=== PATIENT | female | born 2005 | race Caucasian/White ===

== ENCOUNTER 2025-03-09 13:58 | Outpatient (CLI) | payer BC, SELFPAY ==
--- NOTE | 2025-03-09 13:45 | RT.EKG_ITS ---
APPROVED REPORT Exam: Resting ECG Reason for Exam: chest discomfort Patient Location: O HR:83 bpm ECG Measurements Heart Rate 83 AXIS GA 135 P 20 QRSd 98 QRS 54 QT 355 T 17 QTc 418 Conclusion Sinus rhythm...normal P axis, V-rate 50- 99 Normal Electrocardiogram
== END 2025-03-09 13:59 | disposition home or self-care (01) ==
LOC: DI.CM 13:59
PROVIDERS: PCP Nurse Practitioner Family; Visit Provider Nurse Practitioner Family
DX: R07.89 Other chest pain (principal)
CPT/HCPCS: 93010

== ENCOUNTER 2025-03-09 14:55 | Emergency (ER) | payer BC, SELFPAY ==
--- NOTE | 2025-03-09 15:00 | RT.EKG_ITS ---
APPROVED REPORT Exam: Resting ECG Reason for Exam: chest pain Patient Location: E HR:84 bpm ECG Measurements Heart Rate 84 AXIS VT 133 P 32 QRSd 92 QRS 25 QT 344 T 62 QTc 408 Conclusion Sinus rhythm, rate 84 No interval abnormalities No STEMI No significant changes from priors
[2025-03-09 15:04] VITALS: BP 115/81; PULSE 82; RESP 20; TEMP 36.4; O2SAT 96
[2025-03-09 15:09] VITALS: RESP 14
--- NOTE | 2025-03-09 16:14 | ED.GENADUL_ITS ---
Discharge Plan Disposition Patient Disposition: Home Condition: Stable Discharge Details Clinical Impression: Chest pain Primary Care Provider: Awais Adamson ED Provider: Giovanyn Devi Home Meds and New Rx's Prescriptions: Continued triamcinolone acetonide 0.1 % cream 1 applic topical QID Qty: 30 0RF Rx Instructions: apply to ring finger for dyshidrotic eczema for no longer than 2 weeks at a time albuterol sulfate 90 mcg/actuation HFA aerosol inhaler 2 puff inhalation Q6H PRN (Reason: shortness of breath or wheezing) Qty: 8.5 0RF (DME) Aerochamber MV Spacer See Rx Instructions .Route Qty: 1 0RF Rx Instructions: As directed multivitamin Tablet 1 tab PO DAILY medroxyprogesterone [Depo-Provera] 150 mg/mL suspension 150 mg IM [id number] Qty: 1 4RF escitalopram oxalate 20 mg tablet 20 mg PO DAILY Qty: 90 4RF Rx Instructions: dose increase Discharge Instructions Additional Instructions: Your blood work and x-ray did not show any concerning findings at this time. Follow-up with your primary care provider within 1 to 2 weeks especially if your symptoms are continuing. If you feel significantly more ill or have new symptoms such as persistent vomiting return to the emergency department for reevaluation. Stand Alone Forms: Work Release HPI General Mode of arrival: ambulatory . Date/Time Provider Initiated Documentation: 03/09/25 15:09 . Limitations to Documentation: no limitations . Information obtained by: patient . History of Present Illness 19 year old F presents to the emergency department with the chief complaint of chest pain, dyspnea, described as mild, Patient started experiencing this month(s) (1) and it has been constant. No relieving factors improve symptom(s), No exacerbating factors reported . Patient notes no other symptoms.. Patient did receive the following treatments prior to arrival, none Related Data Home Medications ?Medication ?Instructions ?Recorded ?Confirmed albuterol sulfate 90 mcg/actuation 2 puff inhalation Q 6H PRN 05/13/24 03/09/25 aerosol inhaler shortness of breath or wheez ing #8.5 grams inhalational spacing device #1 ea 05/13/24 03/09/25 (Aerochamber MV spacer) triamcinolone acetonide 0.1 % 1 applic topical QID #30 grams 08/28/24 03/09/25 topical cream multivitamin 1 tab PO DAILY 09/24/2402/23 medroxyprogesterone 150 mg/mL 150 mg IM [id number] #1 mL 10/09/24 03/09/25 intramuscular suspension (Depo-Provera) escitalopram oxalate 20 mg tablet 20 mg PO DAILY #90 t abs 10/29/24 03/09/25 Previous Rx's ?Medication ?Instructions ?Recorded albuterol sulfate 90 mcg/actuation 2 puff inhalation Q 6H PRN 05/13/24 aerosol inhaler shortness of breath or wheez ing #8.5 grams inhalational spacing device #1 ea 05/13/24 (Aerochamber MV spacer) triamcinolone acetonide 0.1 % 1 applic topical QID #30 grams 08/28/24 topical cream medroxyprogesterone 150 mg/mL 150 mg IM [id number] #1 mL 10/09/24 intramuscular suspension (Depo-Provera) escitalopram oxalate 20 mg tablet 20 mg PO DAILY #90 t abs 10/29/24 Allergies Allergy/AdvReac Type Severity Reaction Status Date / Time No Known Allergies Allergy Verified 03/09/25 15:12 General Stated Complaint: Chest Pain SHAYY: 3 Review of Systems All systems reviewed & are unremarkable except as noted in HPI and below Constitutional Constitutional: Denies chills, Denies fever(s) and Denies weakness Cardiovascular Cardiovascular: Reports chest pain and Reports dyspnea Respiratory Respiratory: Denies cough and Reports dyspnea Gastrointestinal Gastrointestinal: Denies abdominal pain, Denies nausea and Denies vomiting Neurologic Neurologic: Denies weakness Exam Const General: no acute distress Orientation: alert [facility] Head: normal to inspection Ears: external ears normal General nose exam: external nose normal Mouth: moist mucous membranes Eyes General: appearance normal, both eyes and all related structures Neck Neck: normal visual inspection Resp Effort & Inspection: normal respiratory effort and able to speak in complete sentences Auscultation: clear to auscultation bilaterally Cardio Jugular venous pressure: no JVD Rate: regular rate Heart Sounds: no murmurs Skin General skin exam: no rashes or lesions noted Neuro General: patient alert and patient oriented x3 Extrem General: normal to inspection Psych Mental Status: mental status grossly normal Course Vital Signs Vital signs: Vital Signs Temperature 36.4 C 03/09/25 15:04 Pulse 82 03/09/25 15:04 Respiratory Rate 20 03/09/25 15:04 Blood Pressure 115/81 03/09/25 15:04 Pulse Oximetry 96 03/09/25 15:04 Temperature 36.4 C 03/09/25 15:04 Temperature Source Oral 03/09/25 15:04 Pulse 82 03/09/25 15:04 Respiratory Rate 14 03/09/25 15:09 Respiratory Effort Normal 03/09/25 15:09 Respiratory Depth Normal 03/09/25 15:09 Respiratory Pattern Normal 03/09/25 15:09 Blood Pressure 115/81 03/09/25 15:04 Blood Pressure Position Sitting 03/09/25 15:04 Pulse Oximetry 96 03/09/25 15:04 Oxygen Delivery Method Room Air 03/09/25 15:04 Oxygen Flow Rate 0 03/09/25 15:04 Pain Level 3 03/09/25 15:09 Medical Decision Making 19-year-old female with a history of anxiety and asthma who comes in with 1 month of intermittent chest pressure and dyspnea. Denies any vomiting, fevers, chills, abdominal pain. She is speaking full sentences in no distress. She has clear lung sounds, no JVD, no murmur, no leg swelling or calf tenderness. Given her age I suspect this could be anxiety related but will check a CBC and CMP and troponins. Will also obtain a chest x-ray though my suspicion for entities such as pneumothorax or pneumonia is low. She has on medroxyprogesterone so we will obtain a D-dimer to screen for PE. She has no tearing back pain and has equal peripheral pulses so I doubt dissection Labs unremarkable, D-dimer negative and troponin negative, given she has had symptoms for a month I do not feel delta troponin is indicated. X-ray unremarkable. She is stable and still appears well. She is stable for discharge and will follow-up with her PCP, return precautions given Differential Diagnosis Differential Diagnosis: Anxiety, stress, PE Lab Data Lab results reviewed: Yes I reviewed the patient's lab results. ECG Data Attestation: I personally reviewed and interpreted this ECG (s) as follows: Prior ECG tracings: not available for review Interpretation: sinus rate of 84 no stemi Quality:SDOH Health Related Social Needs: Health related social needs lonely/isolated PFSH All Active Problems (Updated 03/09/25 @ 17:47 by Giovanny Devi MD) Chest pain (Acute) Skin-picking disorder (Acute) Seasonal allergies (Acute) Anxiety (Chronic) Oppositional defiant disorder (Acute) Insomnia (Acute) Keratosis pilaris (Acute) Thoracic back pain (Acute) Mood disorder (Acute) Asthma (Chronic) Surgical History S/P appendectomy (~03/08/17) Family History Mother Depression Father Adopted Maternal Grandmother Colon cancer Diabetes Maternal Grandfather Heart disease Hyperlipidemia Hypertension Social History Smoking/Tobacco Use Status: Never Smoking risk assessment performed?: Yes Alcohol Intake: never Drug use: Never Substance use type: does not use Adopted: Yes Caregiver/Support person: Yes Household members: caregiver Housing: other Details: house trailer Number of Children: 0 number of grandchildren: 0 Communication Needs: None Education Level: high school Do you need help understanding health information?: Rarely 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 Sexually active: No Do you think of yourself as: don't know Current gender identity: other Other: Agender What is your relationship status?: never How often do you talk on the phone with friends or family?: never How often do you get together with friends or relatives?: never How often do you attend bahai or adventism services?: decline to answer Do you belong to any clubs or organized social groups?: no Panel score (0-1 are the most socially isolated patients): 0 NHANES result reviewed/action taken: Yes What type of physical activity do you participate in: walking Duration: > 90 minutes/day Frequency: 5-6 times per week Jodi/Orthodox: Non hindu Special jodi needs: No Seatbelt use: always Helmet use: Yes Helmet use: sometimes Drive intox or ride w/intox otr 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
--- NOTE | 2025-03-09 16:30 | DI.RAD_ITS ---
Exam(s) XR CHEST 2V PA LATERAL EXAM: XR CHEST 2V PA LATERAL CLINICAL HISTORY: chest pain. TECHNIQUE: 2D digital imaging was performed. COMPARISON: No exams were available for comparison FINDINGS: 2 views: Heart size is normal. The mediastinum is not widened. Lungs are clear. No infiltrates nor pleural effusions. IMPRESSION: No acute pulmonary findings. DATA REPOSITORY: RADIATION DOSE DELIVERED:
[2025-03-09 17:07] LABS: Abs Immature Grans 0.04 10^3/uL (0.0-0.06); HCT 39.4 % (36.0-46.0); HGB 12.9 g/dL (11.2-15.7); Immature Grans % 0.4 %; MCH 28.4 pg (27.0-33.0); MCHC 32.7 % (32.0-36.0); MCV 87 fL (80-95); MPV 11.7 fL (8.0-11.0); Platelet Count 295 10^3/uL (130-400); RBC 4.54 10^6/uL (3.93-5.22); RDW 14.0 % (11.7-14.6); RDW-SD 44.7 fL; WBC 10.77 10^3/uL (4.4-10.8)
[2025-03-09 17:22] LABS: HCG Qual (Serum) Negative
[2025-03-09 17:27] LABS: ALT 38 U/L (14-59); AST 22 U/L (15-37); Albumin 4.4 g/dL (3.4-5.0); Alkaline Phosphatase 77 U/L (46-116); Anion Gap 9.5 mmol/L (3-11); BUN 15 mg/dL (7-18); Bilirubin, Total 0.3 mg/dL (0.2-1.0); CO2 26.5 mmol/L (21.0-32.0); Calcium 9.7 mg/dL (8.5-10.1); Chloride 104 mmol/L (98-107); Estimated GFR 127.69 (mL/min/1.73m2); Glucose 86 mg/dL (74-106); Magnesium 2.2 mg/dL (1.8-2.4); Potassium 3.8 mmol/L (3.5-5.1); Sodium 140 mmol/L (136-145); Total Protein 8.6 g/dL (6.4-8.2); Troponin I < 4 ng/L (<or=51)
[2025-03-09 17:33] LABS: D-Dimer 192 ng/mlFEU (<500)
[2025-03-09 18:10] VITALS: BP 122/66; PULSE 85; RESP 16; TEMP 36.9; O2SAT 99
== END 2025-03-09 18:14 | disposition home or self-care (01) ==
PROVIDERS: Emergency Provider Emergency Medicine; PCP Nurse Practitioner Family
DX: R07.9 Chest pain, unspecified (principal); R06.02 Shortness of breath
CPT/HCPCS: 36415; 80053; 93005; 99285; 71046; 83735; 84484; 84703; 85025; 85379; 93010; 99284